=== PATIENT | female | born 1960 | race Caucasian/White ===

== ENCOUNTER 2016-09-18 06:47 | Emergency (ER) | payer SELFPAY ==
[~2016-09-18] VITALS: Ht 165.1 cm; Wt 72.0 kg
[~2016-09-18 06:47] MED LIST: CROM26SP NS; VIC PO
[2016-09-18 06:50] VITALS: Ht 165.1 cm; Wt 72.0 kg
[2016-09-18] MEDS ORDERED: ONDANSETRON (ODT) 4 MG TAB ODT STA (07:20)
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
[2016-09-18] MEDS ORDERED: HYDROCODONE/APAP (5/325) TAB PO ONE (07:30)
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
[2016-09-18] MEDS ORDERED: ACET500C5 PO (09:19)
[2016-09-18] MEDS ORDERED: HYDR-906 PO (09:19)
[2016-09-18] MEDS ORDERED: ONDA4TAB8 PO (09:19)
[2016-09-18] MEDS ORDERED: CYCL-319 PO (09:20)
== END 2016-09-18 09:28 | disposition home or self-care (01) ==
LOC: FTE 06:47
DX: S09.90XA Unspecified injury of head, initial encounter (principal); R11.2 Nausea with vomiting, unspecified; G93.89 Other specified disorders of brain; V49.40XA Driver injured in collision with unspecified motor vehicles in traffic accident, initial encounter
CPT/HCPCS: 70450; 70486; 71010; 72100

== ENCOUNTER 2017-03-19 11:01 | Day surgery (SDC) | payer OTHER ==
[~2017-03-19] VITALS: Ht 157.5 cm; Wt 80.4 kg
[~2017-03-19 11:01] MED LIST changes: +ACET500C5 PO; +CYCL-319 PO; +HYDR-906 PO; +ONDA4TAB8 PO
[2017-03-19 12:05] VITALS: BP 131/84; PULSE 74; RESP 16
[2017-03-19 12:11] VITALS: Ht 157.5 cm; Wt 80.4 kg
[2017-03-19 12:14] LABS: ABNORMAL IP MESSAGE 1; BASOPHILS % 0.4 % (0.0-2.0); EOSINOPHILS % 0.7 % (0.0-7.0); HEMOGLOBIN 11.6 g/dl (12.0-16.0); LYMPHOCYTES # 2.7 10^3/ul (0.8-2.9); LYMPHOCYTES % 48.5 % (15.0-51.0); MEAN CORPUSCULAR HEMOGLOBIN 20.2 pg (29.0-33.0); MEAN CORPUSCULAR HGB CONC 30.5 g/dl (32.0-37.0); MEAN CORPUSCULAR VOLUME 66.2 fl (82.0-101.0); MONOCYTE # 0.4 10^3/ul (0.3-0.9); MONOCYTES % 7.9 % (0.0-11.0); NEUTROPHIL # 2.3 10^3/ul (1.6-7.5); PLATELET COUNT 282 10^3/UL (140-415); RED BLOOD COUNT 5.74 10^6/ul (4.20-5.40); RED CELL DISTRIBUTION WIDTH 17.2 % (11.5-14.5); WHITE BLOOD COUNT 5.6 10^3/ul (4.8-10.8)
[2017-03-19 12:20] LABS: POSITIVE DIFF @See below
[2017-03-19 12:36] LABS: CALCIUM 9.4 mg/dl (8.4-10.2); CREATININE 0.66 mg/dl (0.44-1.00); POTASSIUM 4.6 mmol/L (3.5-5.1)
[2017-03-19 13:25] LABS: INR 1.02; PROTIME 13.4 Sec (12.2-14.2)
[2017-03-19] MEDS ORDERED: HEPARIN 1000 UNITS/ML 10 ML INJ ONE ×2 (14:26→14:30)
[2017-03-19] MEDS ORDERED: LIDOCAINE 1% (MDV) 20 ML INJ ONE (14:27)
[2017-03-19] MEDS ORDERED: IODIXANOL LOCM 100 ML BTL ONE (14:27)
[2017-03-19] MEDS ORDERED: MIDAZOLAM 1 MG/ML 2 ML INJ ONE ×2 (14:27→14:56)
[2017-03-19] MEDS ORDERED: VERAPAMIL 5 MG INJ ONE (14:27)
[2017-03-19] MEDS ORDERED: FENTAnyl 50 MCG/ML VIAL ONE (14:27)
[2017-03-19] MEDS ORDERED: NITROGLYCERIN (IC) 100 MCG/ML INJ ONE (14:30)
--- NOTE | 2017-03-19 14:46 | OPR ---
Date/Time of Note Date/Time of Note DATE: 03/19/17 TIME: 14:43 Operative Report Procedure Date: Mar 19, 2017 Preoperative Diagnosis Chest pain, positive stress test Postoperative Diagnosis Non-obstructive coronary atherosclerosis Surgeon see signature line [employer]ather Good[employer] Maker none Anesthesia Type: moderate sedation Estimated Blood Loss: minimal Transfusion none Specimen none Grafts/Implants none Complications none Pt Condition Post Procedure: stable Disposition: PACU Procedure Description DATE OF PROCEDURE: 03/19/17 OFFSET MACHINE OPERATOR: Ron Brock MD PROCEDURES PERFORMED: 1. Left heart catheterization. 2. Transradial band applied to right wrist. PREINTERVENTION DIAGNOSIS: 1. Chest pain, positive stress test POSTINTERVENTION DIAGNOSES: 1. Non-obstructive coronary atherosclerosis SEDATION: Conscious sedation with fentanyl 50 mcg IV and Versed 1.5 mg IV. DESCRIPTION OF PROCEDURE: The patient placed on surveillance monitor, pulse oximetry and supplemental oxygen as necessary. The right wrist was prepped and draped in a sterile fashion and infiltrated with 1% lidocaine. Via the Seldinger technique, the right radial artery was accessed. A 5-[place] sheath was inserted and through this the right coronary catheter and left coronary catheter and pigtail were advanced into the right coronary artery and left coronary artery and the left ventricle. Placement confirmed by fluoroscopy and hemodynamics. CATHETERIZATION FINDINGS: 1. Left main: No significant disease. 2. LAD: Large caliber vessel with no significant disease. 3. Circumflex: Medium caliber vessel with no significant disease. 4. Obtuse marginal: Medium caliber vessel with no significant disease. 5. RCA: Large dominant vessel with 10-20% distal plaquing HEMODYNAMICS: LVEDP 15. No significant aortic valve gradient on pigtail pullback. TOTAL CONTRAST: 15cc FLUOROSCOPY TIME: 1.6 minutes. COMPLICATIONS: None. FINAL RESULTS: Non-obstructive coronary atherosclerosis RECOMMENDATIONS: Medical Management Discharge home. VINODRON Mar 19, 2017 14:46 2. Wire: Whisper. 3. Balloon: Emerge 2.0 x 12 and NC Quantum 3.5 x 8. 4. Stent: [] DESCRIPTION OF INTERVENTIONAL PROCEDURE: The guide catheter was advanced in the usual manner and the [] was engaged. Angioplasty wire was then used to successfully cross the lesion. Next, the lesion was predilated with the Emerge balloon to nominal pressures x []. Repeat angiogram at this time revealed JUSTUS 3 flow. The stent was then placed across the lesion and successfully deployed at [] atmospheres. Post-stent dilatation was performed with the noncompliant balloon. Final coronary angiogram revealed adequate stent expansion, JUSTUS 3 flow, and no dissection. TOTAL CONTRAST: [] FLUOROSCOPY TIME: [] minutes. COMPLICATIONS: None. FINAL RESULTS: Successful balloon angioplasty and stent placement of the [] with drug-eluting stent []. Pre-intervention stenosis 99%, post-intervention stenosis less than 5%. RECOMMENDATIONS: 1. Continue aspirin 81 mg daily indefinitely. 2. Continue Plavix 75 mg daily for a minimum of 1 year. 3. [place] aggressive medical therapy with aspirin, statin, beta roro. RON BROCK Mar 19, 2017 14:46
[2017-03-19] MEDS ORDERED: SOD CHLORIDE 0.9% 1,000 ML IV SCH (15:07)
[2017-03-19 15:23] VITALS: BP 118/77; PULSE 68; RESP 14
[2017-03-19 15:38] VITALS: BP 114/75; PULSE 64; RESP 14
[2017-03-19 15:53] VITALS: BP 112/81; PULSE 64; RESP 14
[2017-03-19 16:43] VITALS: BP 126/75; PULSE 67; RESP 18
--- NOTE | 2017-03-25 13:30 | RADRPT ---
Vent Rate: 70 bpm RR Interval: 0 msec MT Interval: 170 msec QRS Duration: 82 msec QT Interval: 396 msec QTC Interval: 427 msec P-R-T [place]: 39 - 12 - 67 degrees Normal sinus rhythm Low voltage QRS Borderline ECG Electronically Signed By: Ruben Ureña [id number]
== END 2017-03-19 16:54 | disposition home or self-care (01) ==
LOC: SDS 11:01
PROVIDERS: ATTEND Internal Medicine
DX: E11.9 Type 2 diabetes mellitus without complications (principal); I10 Essential (primary) hypertension; E78.2 Mixed hyperlipidemia
CPT/HCPCS: 80048; 82962; 85025; 85610; 93005; 93458; C1887; J1644; J2250; J3010; Q9967; Z7610

== ENCOUNTER 2017-06-29 09:51 | Day surgery (SDC) | END 2017-06-29 14:22 | disposition home or self-care (01) ==